=== PATIENT | female | born 1995 | race Caucasian/White ===

== ENCOUNTER 2023-11-13 04:22 | Inpatient (IN) | payer OTHER ==
[2023-11-12 10:43] VITALS: BMI 38.4
[2023-11-13] MEDS ORDERED: INDOCYANINE GREEN 25 MG/10 ML VIAL IVPUSH ONE (07:20)
[2023-11-13] MEDS ORDERED: BUPIVACAINE HCL/PF 0.25% (2.5MG/ML) 10 ML VIAL ONE (07:20)
[2023-11-13] MEDS ORDERED: ONDANSETRON 4 MG/2 ML VIAL ONE (07:37)
[2023-11-13] MEDS ORDERED: ROCURONIUM BROMIDE 50 MG/5 ML SYRINGE ONE ×2 (07:37→08:55)
[2023-11-13] MEDS ORDERED: PROPOFOL 20 ML ONE (07:37)
[2023-11-13] MEDS ORDERED: LIDOCAINE HCL/PF 2% SDV 5ML VIAL ONE (07:37)
[2023-11-13] MEDS ORDERED: DEXAMETHASONE SOD PHOSPHATE 4 MG/1 ML VIAL ONE (07:37)
[2023-11-13] MEDS ORDERED: SUCCINYLCHOLINE CHLORIDE 200 MG/10 ML SYRINGE ONE (07:37)
[2023-11-13] MEDS ORDERED: MIDAZOLAM HCL 2 MG/2 ML SINGLE DOSE VIAL ONE (07:37)
[2023-11-13] MEDS: ceFAZolin SODIUM 1 GM VIAL IVPB ONE (08:18)
[2023-11-13] MEDS ORDERED: ceFAZolin SODIUM 1 GM VIAL ONE (08:18)
[2023-11-13] MEDS: BUPIVACAINE HCL/PF 0.25% (2.5MG/ML) 10 ML VIAL IJ ONE ×3 (08:37)
[2023-11-13] MEDS ORDERED: HYDROmorphone HCl 2 MG/ML VIAL ONE (09:22)
[2023-11-13] MEDS ORDERED: SUGAMMADEX SODIUM 200 MG/2 ML VIAL ONE (10:13)
[2023-11-13] MEDS ORDERED: KETOROLAC TROMETHAMINE 30 MG/1 ML VIAL ONE (10:13)
[2023-11-13] MEDS ORDERED: ACETAMINOPHEN INJECTION 100 ML ONE (10:13)
[2023-11-13] MEDS ORDERED: ONDANSETRON 4 MG/2 ML VIAL IVPUSH PRN (11:21)
[2023-11-13] MEDS ORDERED: oxyCODONE HCL 5 MG TABLET PO PRN (11:21)
[2023-11-13] MEDS ORDERED: LACTATED RINGERS SOLUTION 1,000 ML IV SCH (11:30)
[2023-11-13 12:04] VITALS: RESP 16
[2023-11-13 12:54] VITALS: BP 111/57; PULSE 77; TEMP 97.6
== END 2023-11-13 12:55 | disposition home or self-care (01) | DRG 419 ==
LOC: J2C 04:22
PROVIDERS: ADMIT Surgery; ATTEND Surgery
PROC: 8E0W4CZ Robotic Assisted Procedure of Trunk Region, Percutaneous Endoscopic Approach (ICD-10-PCS; 2023-11-13)
PROC: 0FT44ZZ Resection of Gallbladder, Percutaneous Endoscopic Approach (ICD-10-PCS; principal; 2023-11-13 08:00)
DX: K80.10 Calculus of gallbladder with chronic cholecystitis without obstruction (principal)
CPT/HCPCS: 81025; 86850; 86900; 86901; 88304-TC; 94760; J0131

== ENCOUNTER 2023-11-14 22:30 | Observation (INO) | payer OTHER ==
[2023-11-14] MEDS ORDERED: morphine SULFATE 4 MG/ML VIAL ONE (23:07)
[2023-11-14] MEDS: morphine CARPU-JECT 4 MG/1 ML DISP.SYRIN IVPUSH ONE (23:12)
[2023-11-14 23:18] LABS: BASO % 0.6 % (0-2.0); EOS % 1.1 % (0-4.5); HEMATOCRIT 34.6 % (32.4-45.2); HEMOGLOBIN 11.6 GM/dL (10.7-15.3); LYMPH % 40.8 % (8-40); MCH 29.2 pg (25.7-33.7); MCHC 33.5 g/dl (32.0-36.0); MEAN CELL VOLUME 87.1 fl (80-96); MEAN PLT VOLUME 8.6 fl (7.5-11.1); MONO % 5.5 % (3.8-10.2); PLATELET COUNT 268 10^3/uL (134-434); RBC 3.97 M/mm3 (3.60-5.2); RDW 14.6 % (11.6-15.6)
[2023-11-14 23:25] LABS: INR 1.11 (0.83-1.09); PROTHROMBIN TIME (PATIENT) 12.5 SEC (9.7-13.0)
[2023-11-14] MEDS ORDERED: HYDROmorphone HCL CARPU-JECT 2 MG/1 ML DISP.SYRIN ONE (23:26)
[2023-11-14 23:28] LABS: ACTIVATED PTT 30.5 SECONDS (25.2-36.5)
[2023-11-14] MEDS: HYDROmorphone HCL 2 MG TABLET PO ONE (23:33)
[2023-11-14] MEDS: HYDROmorphone HCl 2 MG/ML VIAL IVPUSH ONE (23:33)
[2023-11-14] MEDS: SODIUM CHLORIDE 0.9% 500 ML INFUS.BAG IV ONE (23:34)
[2023-11-14 23:39] LABS: POTASSIUM 3.5 mmol/L (3.5-5.1)
[2023-11-14 23:41] LABS: CALCIUM 8.6 mg/dL (8.5-10.1)
[2023-11-14 23:42] LABS: ALBUMIN 3.5 g/dl (3.4-5.0); BLOOD UREA NITROGEN 12.7 mg/dL (7-18)
[2023-11-14 23:45] LABS: CREATININE 0.8 mg/dL (0.55-1.3)
[2023-11-14 23:46] LABS: BILIRUBIN,TOTAL 0.3 mg/dL (0.2-1); TOT PROT 7.3 g/dl (6.4-8.2)
[2023-11-15] MEDS ORDERED: PIPERACILLIN/TAZOB 4.5 GM 4.5 GM/100 ML BAG IVPB ONE (00:38)
[2023-11-15] MEDS ORDERED: HYDROmorphone HCL CARPU-JECT 2 MG/1 ML DISP.SYRIN ONE ×2 (00:41→02:53)
[2023-11-15] MEDS: PIPERACILLIN/TAZOB 4.5 GM 4.5 GM in DEXTROSE 5%-WATER 100 ML IVPB ONE (00:59)
[2023-11-15] MEDS: HYDROmorphone HCl 2 MG/ML VIAL IVPUSH ONE (00:59)
[2023-11-15 02:47] LABS: EPI CELLS >36 /uL (0-25.1); HYALINE CASTS 1 /uL (0-3.1); URINE APPEARANCE CLEAR; URINE BACTERIA 458 /uL (0-1359); URINE BILIRUBIN NEGATIVE (NEGATIVE); URINE COLOR YELLOW; URINE GLUCOSE (UA) NEGATIVE (NEGATIVE); URINE KETONE NEGATIVE (NEGATIVE); URINE LEUK ESTERASE TRACE (NEGATIVE); URINE NITRITE NEGATIVE (NEGATIVE); URINE PROTEIN NEGATIVE (NEGATIVE); URINE UROBILINOGEN 0.2 mg/dL (0.2-1.0); URINE WBC 66 /uL (0-25.8)
[2023-11-15] MEDS: HYDROmorphone HCl 2 MG/ML VIAL IVPUSH SCH (02:59)
[2023-11-15 03:54] LABS: URINE RBC 932.1 /uL (0-23.9)
[2023-11-15 03:55] LABS: YEAST NONE SEEN (NEGATIVE)
[2023-11-15 04:02] VITALS: BMI 38.2
[2023-11-15] MEDS ORDERED: HYDROmorphone HCL CARPU-JECT 2 MG/1 ML DISP.SYRIN IVPUSH PRN (04:03)
[2023-11-15] MEDS: morphine SULFATE 4 MG/ML VIAL IVPUSH PRN (07:37)
[2023-11-15 09:12] LABS: BASO % 0.2 % (0-2.0); EOS % 0.1 % (0-4.5); HEMOGLOBIN 11.6 GM/dL (10.7-15.3); LYMPH % 6.8 % (8-40); MCH 28.3 pg (25.7-33.7); MCHC 32.2 g/dl (32.0-36.0); MEAN CELL VOLUME 87.9 fl (80-96); MEAN PLT VOLUME 8.8 fl (7.5-11.1); MONO % 3.6 % (3.8-10.2); NEUT % 89.3 % (42.8-82.8); PLATELET COUNT 276 10^3/uL (134-434); RDW 14.4 % (11.6-15.6); WHITE BLOOD COUNT 16.9 K/mm3 (4.0-10.0)
[2023-11-15 09:30] LABS: POTASSIUM 4.1 mmol/L (3.5-5.1)
[2023-11-15 09:37] LABS: ALBUMIN 3.6 g/dl (3.4-5.0)
[2023-11-15 09:38] LABS: BLOOD UREA NITROGEN 9.5 mg/dL (7-18); CALCIUM 8.6 mg/dL (8.5-10.1); MAGNESIUM 1.9 mg/dL (1.8-2.4)
[2023-11-15 09:39] LABS: BILIRUBIN,TOTAL 0.5 mg/dL (0.2-1); TOT PROT 7.2 g/dl (6.4-8.2)
[2023-11-15 09:41] LABS: CREATININE 0.6 mg/dL (0.55-1.3)
[2023-11-15] MEDS: MEROPENEM 1 GM in DEXTROSE 5%-WATER 100 ML IVPB SCH (09:50)
[2023-11-15] MEDS: POLYETHYLENE GLYCOL (HEALTHYLAX) 3350 17 GM PACKET PO SCH (09:50)
[2023-11-15] MEDS: ENOXAPARIN NA (PORCINE) 40 MG/0.4 ML DISP.SYRIN SQ SCH (09:50)
[2023-11-15] MEDS: MINOXIDIL 2.5 MG TABLET PO SCH (10:21)
[2023-11-15] MEDS: LACTATED RINGERS SOLUTION 1,000 ML/1,000 ML INFUS.BAG IV SCH (11:00)
[2023-11-15] MEDS: ACETAMINOPHEN 1000 MG/100 ML BAG IVPB PRN (11:44)
[2023-11-16] MEDS: MEROPENEM 1 GM in DEXTROSE 5%-WATER 100 ML IVPB SCH (02:31)
[2023-11-16 10:36] LABS: BASO % 0.3 % (0-2.0); EOS % 0.7 % (0-4.5); HEMATOCRIT 31.8 % (32.4-45.2); HEMOGLOBIN 10.6 GM/dL (10.7-15.3); LYMPH % 13.7 % (8-40); MCH 29.2 pg (25.7-33.7); MCHC 33.4 g/dl (32.0-36.0); MEAN CELL VOLUME 87.5 fl (80-96); MEAN PLT VOLUME 8.5 fl (7.5-11.1); MONO % 5.1 % (3.8-10.2); NEUT % 80.2 % (42.8-82.8); PLATELET COUNT 238 10^3/uL (134-434); RBC 3.64 M/mm3 (3.60-5.2); WHITE BLOOD COUNT 10.1 K/mm3 (4.0-10.0)
[2023-11-16 10:44] LABS: POTASSIUM 4.1 mmol/L (3.5-5.1)
[2023-11-16 10:51] LABS: CALCIUM 8.7 mg/dL (8.5-10.1)
[2023-11-16 10:52] LABS: BLOOD UREA NITROGEN 6.6 mg/dL (7-18)
[2023-11-16 10:55] LABS: CREATININE 0.5 mg/dL (0.55-1.3)
[2023-11-16 10:57] LABS: BILIRUBIN,TOTAL 0.8 mg/dL (0.2-1)
[2023-11-16 10:58] LABS: TOT PROT 6.5 g/dl (6.4-8.2)
[2023-11-16 11:26] LABS: ERYTHROCYTE SEDIMENTATION RATE 82 mm/hr (0-20)
[2023-11-16] MEDS: oxyCODONE HCL 5 MG TABLET PO PRN (17:59)
[2023-11-16] MEDS: ACETAMINOPHEN 325 MG TABLET (FP) PO PRN (19:24)
[2023-11-16] MEDS ORDERED: ACETAMINOPHEN 325 MG TABLET (FP) PO PRN (21:18)
[2023-11-17 09:27] LABS: POTASSIUM 3.9 mmol/L (3.5-5.1)
[2023-11-17 09:30] LABS: CALCIUM 8.8 mg/dL (8.5-10.1)
[2023-11-17 09:31] LABS: ALBUMIN 2.7 g/dl (3.4-5.0); BLOOD UREA NITROGEN 8.8 mg/dL (7-18)
[2023-11-17 09:33] LABS: BASO % 0.3 % (0-2.0); CREATININE 0.5 mg/dL (0.55-1.3); EOS % 1.1 % (0-4.5); HEMATOCRIT 28.6 % (32.4-45.2); HEMOGLOBIN 9.6 GM/dL (10.7-15.3); LYMPH % 19.8 % (8-40); MCH 29.4 pg (25.7-33.7); MCHC 33.6 g/dl (32.0-36.0); MEAN CELL VOLUME 87.5 fl (80-96); MEAN PLT VOLUME 8.4 fl (7.5-11.1); MONO % 4.4 % (3.8-10.2); NEUT % 74.4 % (42.8-82.8); PLATELET COUNT 231 10^3/uL (134-434); RBC 3.27 M/mm3 (3.60-5.2); RDW 14.3 % (11.6-15.6); WHITE BLOOD COUNT 8.1 K/mm3 (4.0-10.0)
[2023-11-17 09:35] LABS: BILIRUBIN,TOTAL 0.7 mg/dL (0.2-1)
[2023-11-17] MEDS: CEFUROXIME AXETIL 500 MG TABLET PO ONE (11:50)
[2023-11-17 13:16] VITALS: BP 125/83; PULSE 85; RESP 18; TEMP 98.8
== END 2023-11-17 13:28 | disposition home or self-care (01) ==
LOC: JER 22:30 → INTOOBSV 11-15 02:02 → UNDOADMOB 11-15 02:02 → JERBED 11-15 02:02 → J8W 11-15 03:37 → JERBED 11-15 03:37 → J8W 11-16 13:05 → JERBED 11-16 13:05
PROVIDERS: ADMIT Internal Medicine; ATTEND Nurse Practitioner Family
PROC: 3E033NZ Introduction of Analgesics, Hypnotics, Sedatives into Peripheral Vein, Percutaneous Approach (ICD-10-PCS; principal; 2023-11-16)
PROC: 3E0337Z Introduction of Electrolytic and Water Balance Substance into Peripheral Vein, Percutaneous Approach (ICD-10-PCS; 2023-11-16)
PROC: 3E03329 Introduction of Other Anti-infective into Peripheral Vein, Percutaneous Approach (ICD-10-PCS; 2023-11-16)
DX: G89.18 Other acute postprocedural pain (principal); D72.829 Elevated white blood cell count, unspecified; E66.9 Obesity, unspecified; K59.09 Other constipation; Z90.49 Acquired absence of other specified parts of digestive tract; Z88.0 Allergy status to penicillin
CPT/HCPCS: 36415; 71045-TC-FY; 74018-TC-FY; 74177-TC; 80053; 81003; 83605; 83690; 83735; 84100; 84484; 84703; 85025; 85610; 85651; 85730; 86140; 86850; 86900; 86901; 87040; 87086; 93005; 93010; 96361; 96365; 96375; 96376; 99285-25; G0378; J0131; Q9967